=== PATIENT | male | born 1965 | race Caucasian/White ===

== ENCOUNTER → 2016-04-04 | Outpatient (CLI) | payer BC ==
[2016-04-04 10:57] LABS: ALT 41 U/L (21-72); AST 30 U/L (17-59); Alkaline Phosphatase 54 U/L (38-126); Anion Gap 9 mmol/L; Blood Urea Nitrogen 21 mg/dL (9-20); Calcium 9.5 mg/dL (8.4-10.2); Carbon Dioxide 29 mmol/L (22-30); Chloride 104 mmol/L (98-107); Cholesterol 195 mg/dL (<200); Glucose 93 mg/dL (74-99); HDL Cholesterol 62 mg/dL (40-60); Non-African American GFR(MDRD) >60 (>60 ml/min/1.73 sqM); Potassium 4.3 mmol/L (3.5-5.1); Sodium 142 mmol/L (137-145); Total Bilirubin 0.6 mg/dL (0.2-1.3); Total Protein 6.8 g/dL (6.3-8.2); Triglycerides 71 mg/dL (<150)
[2016-04-04 11:24] LABS: Prostate Specific Antigen 0.78 ng/mL (0.00-4.00)
== END | disposition home or self-care (01) ==
LOC: LABWHC1 08:19
PROVIDERS: ATTEND Family Medicine
DX: Z00.01 Encounter for general adult medical examination with abnormal findings (principal); Z13.220 Encounter for screening for lipoid disorders; I10 Essential (primary) hypertension; N40.1 Benign prostatic hyperplasia with lower urinary tract symptoms; B00.1 Herpesviral vesicular dermatitis
CPT/HCPCS: 36415; 80053; 80061; 84153

== ENCOUNTER 2017-03-23 07:17 | Emergency (ER) | payer BC ==
[2017-03-23 07:21] VITALS: TEMP 97
[2017-03-23] MEDS ORDERED: MORPHINE SULFATE 4 MG/ML SYRINGE IVP STA (07:44)
[2017-03-23] MEDS ORDERED: SODIUM CHLORIDE 0.9% 1,000 ML IV STA ×2 (07:44)
[2017-03-23] MEDS ORDERED: KETOROLAC 30 MG/ML 1 ML VIAL IVP STA (07:44)
[2017-03-23 07:55] LABS: HGB 14.6 gm/dL (13.0-17.5); MCH 30.2 pg (25.0-35.0); MCHC 31.9 g/dL (31.0-37.0); MCV 94.8 fL (80.0-100.0); Mean Platelet Volume 6.8; Platelet Count 201 k/uL (150-450); RBC 4.85 m/uL (4.30-5.90); RDW 12.5 % (11.5-15.5); WBC 5.4 k/uL (3.8-10.6)
[2017-03-23 08:04] LABS: ALT 35 U/L (21-72); AST 29 U/L (17-59); Albumin 4.5 g/dL (3.5-5.0); Alkaline Phosphatase 50 U/L (38-126); Anion Gap 10 mmol/L; Blood Urea Nitrogen 18 mg/dL (9-20); Calcium 10.1 mg/dL (8.4-10.2); Carbon Dioxide 27 mmol/L (22-30); Chloride 106 mmol/L (98-107); Glucose 108 mg/dL (74-99); Potassium 4.6 mmol/L (3.5-5.1); Sodium 143 mmol/L (137-145); Total Bilirubin 0.6 mg/dL (0.2-1.3); Total Protein 6.9 g/dL (6.3-8.2)
[2017-03-23 08:06] LABS: Appearance,Urine Clear (Clear); Bilirubin,Urine Negative (Negative); Blood,Urine Large (Negative); Color,Urine Light Red; Glucose,Urine (UA) Negative (Negative); Ketones,Urine Negative (Negative); Leukocyte Esterase,Urine Negative (Negative); Mucus,Urine Occasional /hpf; Nitrite,Urine Negative (Negative); Protein,Urine Trace (Negative); RBC,Urine >182 /hpf (0-5); Specific Gravity,Urine 1.019 (1.001-1.035); Squamous Epithelial Cell,Urine 1 /hpf (0-4); Urobilinogen,Urine <2.0 mg/dL (<2.0)
--- NOTE | 2017-03-23 08:17 | CT ---
EXAMINATION TYPE: CT abdomen pelvis wo con DATE OF EXAM: 03/23/2017 COMPARISON: 10/22/2015 HISTORY: Pt c/o Lt flank pain CT DLP: 966 mGycm Examination of the solid and hollow viscera is limited given the lack of contrast. FINDINGS: LUNG BASES: No evidence for nodule. No evidence for infiltrate. LIVER/GB: The gallbladder is unremarkable. Hypoattenuating hepatic lesions measuring up to 1.2 cm may reflect underlying cysts. PANCREAS: No pancreatic mass identified. No inflammatory process seen. SPLEEN: No evidence for splenomegaly. No intrasplenic lesions seen. ADRENALS: No adrenal nodules identified. No evidence for thickening. KIDNEYS: 3.6 mm calculus distal left ureter approximately 4 cm from the left UVJ resulting in mild le ft-sided hydroureteronephrosis. Mild left renal edema may reflect underlying infection. No additional calculi seen. No renal lesions evident. BOWEL: Appendix has a normal appearance. No evidence of bowel obstruction. No inflammatory process. D iverticulosis without diverticulitis. Lymph nodes: No evidence for adenopathy greater than 1 cm. Abdominal aorta: Atheromatous changes seen. No evidence for aneurysm. Genital organs: Prostate calcifications. Other: No significant abnormality. IMPRESSION: 1.3.6 mm calculus distal left ureter approximately 4 cm from the left UVJ resulting in mild left-side d hydroureteronephrosis.
--- NOTE | 2017-03-23 08:34 | ED ---
General Adult HPI - General Chief complaint: Urogenital Stated complaint: Kidney stone Time Seen by Provider: 03/23/17 08:14 Source: patient, RN notes reviewed Mode of arrival: ambulatory Limitations: no limitations - History of Present Illness Initial comments: 51-year-old male presents for left flank pain and dysuria. He states that for the past day or so. No nausea vomiting. He has noticed darker urine. He states is a family history kidney stone but he himself has not had one. He denies any fever chills. He was concerned due to the continued pains without that he should be seen. Patient denies any recent fever, chills, shortness of breath, chest pain, nausea vomiting, numbness or tingling, constipation or diarrhea, headaches or visual changes, or any other current symptoms. - Related Data Home Medications Medication Instructions Recorded Confirmed Multivitamin [Men's Multi-Vitamin] 1 tab PO DAILY 10/21/15 03/23/17 Lisinopril [Zestril] 10 mg PO DAILY 03/23/17 03/23/17 Previous Rx's Medication Instructions Recorded Hydrocodone/Acetaminophen [[place] 1 each PO Q6HR PRN #10 tab 03/23/17 5-325] Ibuprofen [Motrin] 600 mg PO Q6HR PRN #20 tab 03/23/17 Ondansetron Odt [Zofran ODT] 4 mg PO Q8HR PRN #20 tab 03/23/17 Tamsulosin [Flomax] 0.4 mg PO DAILY #5 cap 03/23/17 Allergies Allergy/AdvReac Type Severity Reaction Status Date / Time No Known Allergies Allergy Verified 03/23/17 07:55 Review of Systems ROS Statement: Those systems with pertinent positive or pertinent negative responses have been documented in the HPI. ROS Other: All systems not noted in ROS Statement are negative. Past Medical History Past Medical History: Hypertension Additional Past Medical History / Comment(s): diverticulitis History of Any Multi-Drug Resistant Organisms: None Reported Past Surgical History: Hernia Repair Past Psychological History: No Psychological Hx Reported Smoking Status: Never smoker Past Alcohol Use History: Occasional Past Drug Use History: None Reported General Exam Limitations: no limitations General appearance: alert, in no apparent distress ENT exam: Present: normal exam, mucous membranes moist Neck exam: Present: normal inspection. Absent: tenderness, meningismus, lymphadenopathy Respiratory exam: Present: normal lung sounds bilaterally. Absent: respiratory distress, wheezes, rales, rhonchi, stridor Cardiovascular Exam: Present: regular rate, normal rhythm, normal heart sounds. Absent: systolic murmur, diastolic murmur, rubs, gallop, clicks GI/Abdominal exam: Present: soft, normal bowel sounds. Absent: distended, tenderness, guarding, rebound, rigid Neurological exam: Present: alert, oriented X3, CN II-XII intact Psychiatric exam: Present: normal affect, normal mood Skin exam: Present: warm, dry, intact, normal color. Absent: rash Course Vital Signs 03/23/17 07:18 Temperature 97.0 F L Pulse Rate 107 H Respiratory 18 Rate Blood Pressure 137/83 O2 Sat by Pulse 99 Oximetry Medical Decision Making - Medical Decision Making 51-year-old male presents for left flank pain who does appear to have a left ureteral calculus. At this time we will state patient medications for home. We discussed follow-up with urology we discussed return parameters all questions. Patient stated that he understood he is agreement this plan. All questions have been answered. He'll be discharged - Lab Data Result diagrams: 03/23/17 07:37 03/23/17 07:37 Lab Results 03/23/17 03/23/17 03/23/17 Range/Units 07:37 07:37 07:37 WBC 5.4 (3.8-10.6) k/uL RBC 4.85 (4.30-5.90) m/uL Hgb 14.6 (13.0-17.5) gm/dL Hct 46.0 (39.0-53.0) % MCV 94.8 (80.0-100.0) fL MCH 30.2 (25.0-35.0) pg MCHC 31.9 (31.0-37.0) g/dL RDW 12.5 (11.5-15.5) % Plt Count 201 (150-450) k/uL Sodium 143 (137-145) mmol/L Potassium 4.6 (3.5-5.1) mmol/L Chloride 106 (98-107) mmol/L Carbon Dioxide 27 (22-30) mmol/L Anion Gap 10 mmol/L BUN 18 (9-20) mg/dL Creatinine 0.94 (0.66-1.25) mg/dL Est GFR (MDRD) Af Amer >60 (>60 ml/min/1.73 sqM) Est GFR (MDRD) Non-Af >60 (>60 ml/min/1.73 sqM) Glucose 108 H (74-99) mg/dL Calcium 10.1 (8.4-10.2) mg/dL Total Bilirubin 0.6 (0.2-1.3) mg/dL AST 29 (17-59) U/L ALT 35 (21-72) U/L Alkaline Phosphatase 50 (38-126) U/L Total Protein 6.9 (6.3-8.2) g/dL Albumin 4.5 (3.5-5.0) g/dL Urine Color Light Red Urine Appearance Clear (Clear) Urine pH 6.0 (5.0-8.0) Ur Specific [place] 1.019 (1.001-1.035) Urine Protein Trace H (Negative) Urine Glucose (UA) Negative (Negative) Urine Ketones Negative (Negative) Urine Blood Large H (Negative) Urine Nitrite Negative (Negative) Urine Bilirubin Negative (Negative) Urine Urobilinogen <2.0 (<2.0) mg/dL Ur Leukocyte Esterase Negative (Negative) Urine RBC >182 H (0-5) /hpf Ur Squamous Epith Cells 1 (0-4) /hpf Urine Mucus Occasional H (None) /hpf - Radiology Data Radiology results: report reviewed, image reviewed Disposition Clinical Impression: Left ureteral calculus Disposition: HOME SELF-CARE Condition: Stable Instructions: Ureteral Stones (ED) Additional Instructions: Please use medication as discussed. Please follow up with family doctor if symptoms have not improved over the next two days. Please return to the emergency room if your symptoms increase or worsen or for any other concerns. Prescriptions: Hydrocodone/Acetaminophen [[place] 5-325] 1 each PO Q6HR PRN #10 tab PRN Reason: Pain Ibuprofen [Motrin] 600 mg PO Q6HR PRN #20 tab PRN Reason: Pain Ondansetron Odt [Zofran ODT] 4 mg PO Q8HR PRN #20 tab PRN Reason: Nausea Tamsulosin [Flomax] 0.4 mg PO DAILY #5 cap Referrals: Damaris Cardona III, MD [Primary Care Provider] - 1-2 days Murphy Hayden MD [STAFF PHYSICIAN] - 1-2 days Time of Disposition: 08:33
[2017-03-23 08:43] VITALS: BP 125/84; PULSE 82; RESP 17
[2017-03-23 08:47] LABS: Eosinophils # (M) 0.11 k/uL (0-0.7); Lymphocytes # (M) 1.78 k/uL (1.0-4.8); Monocytes # (M) 0.27 k/uL (0-1.0); Neutrophils # (M) 3.24 k/uL (1.3-7.7); Neutrophils % (M) 60 %; Nucleated Red Blood Cells 0 /100 WBC (0-0); Total Cells Counted 100
== END 2017-03-23 08:43 | disposition home or self-care (01) ==
LOC: EC 07:17
DX: N20.1 Calculus of ureter (principal); I10 Essential (primary) hypertension; Z79.899 Other long term (current) drug therapy; Z84.1 Family history of disorders of kidney and ureter; Z53.20 Procedure and treatment not carried out because of patient's decision for unspecified reasons; Z53.8 Procedure and treatment not carried out for other reasons
CPT/HCPCS: 36415; 74176; 80053; 81001; 85025; 87086; 96360; 99284

== ENCOUNTER → 2017-04-02 | Outpatient (CLI) | payer BC ==
[2017-04-02 10:51] LABS: PSA Annual Screen 0.96 ng/mL (0.00-4.00)
== END ==
LOC: LABWHC1 09:05
PROVIDERS: ATTEND Family Medicine
DX: Z00.01 Encounter for general adult medical examination with abnormal findings (principal); N40.1 Benign prostatic hyperplasia with lower urinary tract symptoms
CPT/HCPCS: 80061; 36415; G0103

== ENCOUNTER → 2017-10-28 | Outpatient (CLI) | payer BC ==
--- NOTE | 2017-10-28 15:34 | XR ---
EXAMINATION TYPE: XR chest 2V DATE OF EXAM: 10/28/2017 COMPARISON: Chest x-ray March 23, 2015. HISTORY: Annual physical exam. TECHNIQUE: Frontal and lateral views of the chest are obtained. FINDINGS: There is no focal air space opacity, pleural effusion, or pneumothorax seen. The cardiac silhouette size is within normal limits. The osseous structures are intact. IMPRESSION: No acute cardiopulmonary process. No significant change from prior.
== END | disposition home or self-care (01) ==
LOC: RADXRMAIN 14:48
PROVIDERS: ATTEND Internal Medicine Geriatric Medicine
DX: R05 Cough (principal)
CPT/HCPCS: 71046

== ENCOUNTER → 2017-11-08 | Outpatient (CLI) | payer BC ==
--- NOTE | 2017-11-08 12:18 | CT ---
EXAMINATION TYPE: CT soft tissue neck w con DATE OF EXAM: 11/08/2017 11:44 AM COMPARISON: None HISTORY: Palpable mass. Right of midline nodule marked by nodule. CT DLP: 377 mGycm Automated exposure control for dose reduction was used. CONTRAST: CT scan of the neck is performed following with IV Contrast, patient injected with 100 mL of Isovue 3 00. Axial images are obtained, coronal and sagittal reformatted images are reviewed. FINDINGS: There is a BB overlying the area of patient's palpable abnormality, no underlying abnormali ties evident. Airway: There are calcifications noted in the parapharyngeal soft tissues compatible with chronic inf ection.. Parotid/submandibular glands: No gross abnormality seen. Carotid/Vascular Structures: Patent, no evidence stenosis of the proximal internal carotid arteries. Vertebral arteries are patent. Osseous Structures: Probable mucoperiosteal thickening, possible mucus retention cyst noted within th e bilateral maxillary sinuses. Other: Thyroid gland is unremarkable. Small benign-appearing lymph nodes are present bilaterally. IMPRESSION: No abnormality evident to the site of patient's overlying BB. Sinus disease.
== END ==
LOC: RADCTMAIN 11:09
PROVIDERS: ATTEND Otolaryngology
DX: R07.0 Pain in throat (principal)
CPT/HCPCS: 70491; Q9967

== ENCOUNTER → 2018-04-05 | Outpatient (CLI) | payer BC ==
[2018-04-05 10:36] LABS: HCT 44.8 % (39.0-53.0); HGB 14.7 gm/dL (13.0-17.5); MCH 30.5 pg (25.0-35.0); MCHC 32.8 g/dL (31.0-37.0); MCV 92.9 fL (80.0-100.0); Mean Platelet Volume 6.4; Platelet Count 199 k/uL (150-450); RBC 4.82 m/uL (4.30-5.90); RDW 12.8 % (11.5-15.5); WBC 4.6 k/uL (3.8-10.6)
[2018-04-05 11:24] LABS: Eosinophils # (M) 0.14 k/uL (0-0.7); Lymphocytes # (M) 1.66 k/uL (1.0-4.8); Monocytes # (M) 0.37 k/uL (0-1.0); Neutrophils # (M) 2.44 k/uL (1.3-7.7); Neutrophils % (M) 53 %; Nucleated Red Blood Cells 0 /100 WBC (0-0); Total Cells Counted 100
[2018-04-05 17:03] LABS: Albumin 4.4 g/dL (3.80-4.90); Albumin/Globulin Ratio 2.75 (1.60-3.17); Anion Gap 9.1 mmol/L (4.00-12.00); Calcium 9.5 mg/dL (8.7-10.3); Carbon Dioxide 27.9 mmol/L (21.6-31.8); Globulin 1.6 g/dL (1.6-3.3); Potassium 4.3 mmol/L (3.5-5.5); Total Bilirubin 0.7 mg/dL (0.2-1.2)
[2018-04-05 20:02] LABS: Hemoglobin A1C 5.2 % (4.0-6.0)
== END ==
LOC: LABWHC1 09:15
PROVIDERS: ATTEND Internal Medicine Geriatric Medicine
DX: Z00.00 Encounter for general adult medical examination without abnormal findings (principal); N40.0 Benign prostatic hyperplasia without lower urinary tract symptoms; I10 Essential (primary) hypertension
CPT/HCPCS: 36415; 80053; 80061; 83036; 84153; 84439; 84443; 85025

== ENCOUNTER → 2019-04-21 | Outpatient (CLI) | payer BC ==
[2019-04-21 09:31] LABS: HCT 44.3 % (39.0-53.0); HGB 14.6 gm/dL (13.0-17.5); MCH 30.7 pg (25.0-35.0); Mean Platelet Volume 7.4; Platelet Count 194 k/uL (150-450); RBC 4.76 m/uL (4.30-5.90); RDW 13.1 % (11.5-15.5); WBC 5.4 k/uL (3.8-10.6)
[2019-04-21 09:48] LABS: Eosinophils # (M) 0.05 k/uL (0-0.7); Lymphocytes # (M) 1.08 k/uL (1.0-4.8); Monocytes # (M) 0.65 k/uL (0-1.0); Neutrophils # (M) 3.62 k/uL (1.3-7.7); Neutrophils % (M) 67 %; Nucleated Red Blood Cells 0 /100 WBC (0-0); Total Cells Counted 100
[2019-04-21 16:19] LABS: African American GFR (CKD) 114.2 (60.0-200.0); Albumin 4.6 g/dL (3.80-4.90); Albumin/Globulin Ratio 2.71 (1.60-3.17); Anion Gap 7.5 mmol/L (4.00-12.00); BUN/Creat Ratio 23.33 Ratio (12.00-20.00); Calcium 9.2 mg/dL (8.7-10.3); Carbon Dioxide 28.5 mmol/L (21.6-31.8); Chol/HDL Ratio 3.07; Globulin 1.7 g/dL (1.6-3.3); LDL Cholesterol,Calculated 136.6 mg/dL (0.0-131.0); Non-African American GFR(CKD) 98.5 (60.0-200.0); Potassium 4.2 mmol/L (3.5-5.5); Total Bilirubin 0.6 mg/dL (0.3-1.2); Total Protein 6.3 g/dL (6.2-8.2); VLDL Calculation 14.4 mg/dL (5.00-40.00)
[2019-04-21 18:45] LABS: Hemoglobin A1C 5.3 % (4.0-6.0)
== END | disposition home or self-care (01) ==
LOC: LABWHC1 08:27
PROVIDERS: ATTEND Internal Medicine Geriatric Medicine
DX: Z00.00 Encounter for general adult medical examination without abnormal findings (principal); N40.0 Benign prostatic hyperplasia without lower urinary tract symptoms; R79.9 Abnormal finding of blood chemistry, unspecified
CPT/HCPCS: 36415; 80053; 80061; 83036; 84153; 84443; 85025

== ENCOUNTER → 2020-04-22 | Outpatient (CLI) | payer BC ==
[2020-04-22 14:59] LABS: Basophils # (A) 0.02 X 10*3/uL (0.00-0.10); Basophils % (A) 0.3 %; Eosinophils # (A) 0.13 X 10*3/uL (0.04-0.35); HCT 43.6 % (39.6-50.0); HGB 14.1 g/dL (13.0-17.0); Lymphocytes # (A) 1.69 X 10*3/uL (0.90-5.00); Lymphocytes % (A) 26.5 %; MCH 30.4 pg (27.0-32.0); MCHC 32.3 g/dL (32.0-37.0); Mean Platelet Volume 10.6 fL (9.5-12.2); Monocytes # (A) 0.77 X 10*3/uL (0.20-1.00); Monocytes % (A) 12.1 %; Neutrophils # (A) 3.76 X 10*3/uL (1.80-7.70); Neutrophils % (A) 58.9 %; Platelet Count 210 X 10*3/uL (140-440); RBC 4.64 X 10*6/uL (4.40-5.60); RDW 13.2 % (11.5-14.5); WBC 6.38 X 10*3/uL (4.50-10.00)
[2020-04-22 15:42] LABS: African American GFR (CKD) 118.2 (60.0-200.0); Albumin 4.5 g/dL (3.80-4.90); Albumin/Globulin Ratio 2.65 (1.60-3.17); Anion Gap 6.2 mmol/L (4.00-12.00); Calcium 9.7 mg/dL (8.7-10.3); Carbon Dioxide 30.8 mmol/L (21.6-31.8); Chol/HDL Ratio 2.66; Globulin 1.7 g/dL (1.6-3.3); LDL Cholesterol,Calculated 108.8 mg/dL (0.0-131.0); Potassium 4.2 mmol/L (3.5-5.5); Total Bilirubin 0.5 mg/dL (0.3-1.2); Total Protein 6.2 g/dL (6.2-8.2); VLDL Calculation 17.2 mg/dL (5.00-40.00)
[2020-04-22 15:51] LABS: Prostate Specific Antigen 3.3 ng/mL (0.0-3.5)
== END | disposition home or self-care (01) ==
LOC: LABWHC1 09:20
PROVIDERS: ATTEND Internal Medicine Geriatric Medicine
DX: E78.5 Hyperlipidemia, unspecified (principal); R79.9 Abnormal finding of blood chemistry, unspecified; N40.0 Benign prostatic hyperplasia without lower urinary tract symptoms
CPT/HCPCS: 36415; 80053; 80061; 83036; 84153; 84443; 85025

== ENCOUNTER → 2021-04-30 | Outpatient (CLI) | payer BC ==
[2021-04-30 19:08] LABS: Chol/HDL Ratio 3.25 Ratio; LDL Cholesterol,Calculated 160.6 mg/dL (0.0-131.0); VLDL Calculation 13.94 mg/dL (5.00-40.00)
== END | disposition home or self-care (01) ==
LOC: LABWHC1 11:40
PROVIDERS: ATTEND Internal Medicine Geriatric Medicine
DX: E78.5 Hyperlipidemia, unspecified (principal); N40.0 Benign prostatic hyperplasia without lower urinary tract symptoms
CPT/HCPCS: 36415; 80061; 84153

== ENCOUNTER → 2022-05-15 | Outpatient (CLI) | payer BC ==
[2022-05-15 11:24] LABS: Basophils # (A) 0.02 X 10*3/uL (0.00-0.10); Basophils % (A) 0.4 %; Eosinophils # (A) 0.11 X 10*3/uL (0.04-0.35); Eosinophils % (A) 2.1 %; HCT 45.2 % (39.6-50.0); HGB 14.6 g/dL (13.0-17.0); Immature Grans, Automated 0.2 %; Lymphocytes # (A) 1.69 X 10*3/uL (0.90-5.00); Lymphocytes % (A) 31.7 %; MCHC 32.3 g/dL (32.0-37.0); MCV 92.8 fL (80.0-97.0); Mean Platelet Volume 10.5 fL (9.5-12.2); Monocytes # (A) 0.62 X 10*3/uL (0.20-1.00); Monocytes % (A) 11.6 %; NRBC Per 100 WBC 0 /100 WBCS (0.0-0.0); Neutrophils # (A) 2.88 X 10*3/uL (1.80-7.70); Platelet Count 205 X 10*3/uL (140-440); RBC 4.87 X 10*6/uL (4.40-5.60); RDW 12.7 % (11.5-14.5); WBC 5.33 X 10*3/uL (4.50-10.00)
[2022-05-15 11:34] LABS: ALT 50 U/L (10-49); AST 31 U/L (14-35); African American GFR (CKD) 97.8 (60.0-200.0); Albumin 4.9 g/dL (3.8-4.9); Albumin/Globulin Ratio 2.45 (1.60-3.17); Alkaline Phosphatase 51 U/L (41-126); Blood Urea Nitrogen 19.9 mg/dL (9.0-27.0); Calcium 9.8 mg/dL (8.7-10.3); Carbon Dioxide 29.2 mmol/L (20.0-27.5); Chloride 103 mmol/L (96-109); Chol/HDL Ratio 2.17 Ratio; Glucose 87 mg/dL (70-110); LDL Cholesterol,Calculated 70.8 mg/dL (0.0-131.0); Non-African American GFR(CKD) 84.4 (60.0-200.0); Potassium 4.2 mmol/L (3.5-5.5); Sodium 142 mmol/L (135-145); Total Protein 6.9 g/dL (6.2-8.2); VLDL Calculation 12.68 mg/dL (5.00-40.00)
== END | disposition home or self-care (01) ==
LOC: LABWHC1 07:58
PROVIDERS: ATTEND Internal Medicine Geriatric Medicine
DX: Z00.00 Encounter for general adult medical examination without abnormal findings (principal); K22.70 Barrett's esophagus without dysplasia; E78.5 Hyperlipidemia, unspecified; N40.0 Benign prostatic hyperplasia without lower urinary tract symptoms; R79.9 Abnormal finding of blood chemistry, unspecified
CPT/HCPCS: 36415; 80053; 80061; 83036; 84153; 84443; 85025

== ENCOUNTER → 2022-06-04 | Outpatient (CLI) | payer BC ==
--- NOTE | 2022-06-04 19:17 | XR ---
EXAMINATION TYPE: XR chest 2V DATE OF EXAM: 06/04/2022 COMPARISON: 10/28/2017 HISTORY: 57-year-old male R05.9 TECHNIQUE: Frontal and lateral views FINDINGS: The cardiomediastinal silhouette, aorta, and pulmonary vasculature are within normal limits. Lungs an d pleural spaces are clear. IMPRESSION: No acute cardiopulmonary process.
== END | disposition home or self-care (01) ==
LOC: RADXRMAIN 15:05
PROVIDERS: ATTEND Internal Medicine Geriatric Medicine
DX: R05.9 Cough, unspecified (principal)
CPT/HCPCS: 71046

== ENCOUNTER → 2023-05-17 | Outpatient (CLI) | payer BC ==
[2023-05-17 11:01] LABS: Basophils # (A) 0.03 X 10*3/uL (0.00-0.10); Basophils % (A) 0.6 %; Eosinophils # (A) 0.12 X 10*3/uL (0.04-0.35); Eosinophils % (A) 2.4 %; HGB 14.8 g/dL (13.0-17.0); Lymphocytes % (A) 35.6 %; MCH 30.8 pg (27.0-32.0); MCHC 33.6 g/dL (32.0-37.0); MCV 91.5 FL (80.0-97.0); Mean Platelet Volume 10.1 FL (9.5-12.2); Monocytes # (A) 0.53 X 10*3/uL (0.20-1.00); Monocytes % (A) 10.5 %; NRBC Per 100 WBC 0 X 10*3/uL (0.00-0.01); Neutrophils # (A) 2.56 X 10*3/uL (1.80-7.70); Neutrophils % (A) 50.7 %; Platelet Count 202 X 10*3/uL (140-440); RBC 4.81 X 10*6/uL (4.40-5.60); RDW 12.8 % (11.5-14.5); WBC 5.05 X 10*3/uL (4.50-10.00)
[2023-05-17 11:15] LABS: Chol/HDL Ratio 2.24 Ratio; VLDL Calculation 13.42 mg/dL (5.00-40.00)
[2023-05-17 11:16] LABS: ALT 33 U/L (10-49); AST 25 U/L (14-35); Albumin 4.8 g/dL (3.8-4.9); Albumin/Globulin Ratio 2.53 Ratio (1.60-3.17); Alkaline Phosphatase 50 U/L (41-126); BUN/Creat Ratio 21.11 Ratio (12.00-20.00); Calcium 9.7 mg/dL (8.7-10.3); Carbon Dioxide 27.7 mmol/L (21.6-31.8); Chloride 104 mmol/L (96-109); Globulin 1.9 g/dL (1.6-3.3); Glucose 105 mg/dL (70-110); LDL Cholesterol,Calculated 76.8 mg/dL (0.0-131.0); Potassium 4.2 mmol/L (3.5-5.5); Prostate Specific Antigen 1.44 ng/mL (0.000-3.500); Sodium 142 mmol/L (135-145); Total Bilirubin 0.4 mg/dL (0.3-1.2); Total Protein 6.7 g/dL (6.2-8.2)
== END | disposition home or self-care (01) ==
LOC: LABWHC1 08:08
PROVIDERS: ATTEND Internal Medicine Geriatric Medicine
DX: Z00.00 Encounter for general adult medical examination without abnormal findings (principal); E78.5 Hyperlipidemia, unspecified; K22.70 Barrett's esophagus without dysplasia; N40.0 Benign prostatic hyperplasia without lower urinary tract symptoms
CPT/HCPCS: 36415; 80053; 80061; 84153; 84443; 85025

== ENCOUNTER 2024-02-01 09:34 | Emergency (ER) | payer BC ==
--- NOTE | 2024-02-01 10:01 | ED ---
Weakness HPI - General Chief complaint: Weakness Stated complaint: weakness Time Seen by Provider: 02/01/24 09:40 Source: patient, RN notes reviewed Mode of arrival: ambulatory Limitations: no limitations - History of Present Illness Initial comments: This is a 58-year-old male who presents to the emergency department for weakness. 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 He started to feel weak, diaphoretic, and like he was going to pass out. He went to sit down in the back and received a liter of IV fluids. States that he started to feel better, but is still weak. Denies any chest pain or shortness of breath. Denies any history similar symptoms in the past. Denies any nausea/vomiting or history of cardiac problems. MD Complaint: generalized weakness - Related Data Home Medications Medication Instructions Recorded Confirmed Multivitamin [Men's Multi-Vitamin] 1 tab PO DAILY 10/21/15 03/23/17 lisinopriL [Zestril] 10 mg PO DAILY 03/23/17 03/23/17 Previous Rx's Medication Instructions Recorded Hydrocodone/Acetaminophen [[place] 1 each PO Q6HR PRN #10 tab 03/23/17 5-325] Ibuprofen [Motrin] 600 mg PO Q6HR PRN #20 tab 03/23/17 Ondansetron Odt [Zofran ODT] 4 mg PO Q8HR PRN #20 tab 03/23/17 Tamsulosin [Flomax] 0.4 mg PO DAILY #5 cap 03/23/17 Allergies Allergy/AdvReac Type Severity Reaction Status Date / Time No Known Allergies Allergy Verified 03/23/17 07:55 Review of Systems ROS Statement: Those systems with pertinent positive or pertinent negative responses have been documented in the HPI. ROS Other: All systems not noted in ROS Statement are negative. Past Medical History Past Medical History: Hypertension Additional Past Medical History / Comment(s): diverticulitis History of Any Multi-Drug Resistant Organisms: None Reported Past Surgical History: Hernia Repair Past Psychological History: No Psychological Hx Reported Past Alcohol Use History: Occasional Past Drug Use History: None Reported General Exam Limitations: no limitations General appearance: alert, in no apparent distress Head exam: Present: atraumatic, normocephalic, normal inspection Eye exam: Present: normal appearance, PERRL, EOMI. Absent: scleral icterus, conjunctival injection, periorbital swelling Respiratory exam: Present: normal lung sounds bilaterally. Absent: respiratory distress, wheezes, rales, rhonchi, stridor Cardiovascular Exam: Present: regular rate, normal rhythm, normal heart sounds. Absent: systolic murmur, diastolic murmur, rubs, gallop, clicks Neurological exam: Present: alert, oriented X3, CN II-XII intact Psychiatric exam: Present: normal affect, normal mood Skin exam: Present: warm, dry, intact, normal color. Absent: rash Course Vital Signs 02/01/24 02/01/24 10:48 11:21 Temperature 97.6 F 97.6 F Pulse Rate 92 78 Respiratory 17 17 Rate Blood Pressure 127/82 123/78 O2 Sat by Pulse 98 98 Oximetry Medical Decision Making - Medical Decision Making This is a 58-year-old male who presents to the emergency department for weak ness. Was pt. sent in by a medical professional or institution? @ -No Did you speak to anyone other than the patient for history? @ -No Did you review nursing and triage notes? @ -Yes, and I agree, it is accurate with regards to the patient's symptoms. Were old charts reviewed? @ -No Differential Diagnosis? @ -Differential Weakness: Hypoglycemia, shock, sepsis, hyponatremia, anemia, infection, UT, ETOH, adverse medicine reaction, overdose, stroke, this is not meant to be an all-inclusive list. EKG interpreted by me (3pts min.)? @ -EKG interpreted by me demonstrating the following: Electronic atrial pacemaker. Ventricular rate 93 bpm, OK interval 357 ms, QRS duration 95 ms, QTc 409 ms. X-rays interpreted by me (1pt min.)? @ -Not obtained CT interpreted by me (1pt min.)? @ -Not obtained U/S interpreted by me (1pt. min.)? @ -Not obtained What testing was considered but not performed? (CT, X-rays, U/S, labs)? Why? @ -None What meds were considered but not given? Why? @ -None Did you discuss the management of the patient with other professionals? @ -No Did you reconcile home meds? @ -No Was smoking cessation discussed for >3mins.? @ -No Was critical care preformed (if so, how long)? @ -No Were there social determinants of health that impacted care today? How? (Homelessness, low income, unemployed, alcoholism, drug addiction, transportation, low edu. Level, literacy, decrease access to med. care, retirement, rehab)? @ -No Was there de-escalation of care discussed even if they declined? (Discuss DNR or withdrawal of care, Hospice)? @ -No What co-morbidities impacted this encounter? (DM, HTN, Smoking, COPD, CAD, Cancer, CVA, Hep., AIDS, mental health diagnosis, sleep apnea, morbid obesity)? @ -None Was patient admitted / discharged? @ -Discharged. Lab work unremarkable. COVID, influenza, and RSV testing negative. He had already received a liter bolus of IV fluids prior to checking in. He was given another 500 mL in the emergency department. The cause of his symptoms is not currently clear. It could be something along the lines of an early viral infection. He did not have any chest pain or shortness of breath. Advised follow-up with his PCP in the next couple of days and he was given strict return precautions. Patient discharged home in stable condition. Case discussed with ED attending Dr. Beckman. Return precautions reviewed in depth, the patient is instructed to return to the emergency department with any new, worsening, or concerning symptoms. Patient verbalized understanding. Undiagnosed new problem with uncertain prognosis? @ -None Drug Therapy requiring intensive monitoring for toxicity (Heparin, Nitro, Insulin, Cardizem)? @ -None Were any procedures done? @ -None Diagnosis/symptom? @ -Dizziness, near syncope Acute, or Chronic, or Acute on Chronic? @ -Acute Uncomplicated (without systemic symptoms) or Complicated (systemic symptoms)? @ -Uncomplicated Side effects of treatment? @ -None Exacerbation, Progression, or Severe Exacerbation] @ -Not applicable Poses a threat to life or bodily function? @ -Unlikely - Lab Data Result diagrams: 02/01/24 09:59 02/01/24 09:59 Lab Results 02/01/24 02/01/24 02/01/24 Range/Units 09:59 09:59 09:59 WBC 7.2 (3.8-10.6) k/uL RBC 4.22 L (4.30-5.90) m/uL Hgb 13.3 (13.0-17.5) gm/dL Hct 40.1 (39.0-53.0) % MCV 94.8 (80.0-100.0) fL MCH 31.4 (25.0-35.0) pg MCHC 33.1 (31.0-37.0) g/dL RDW 12.6 (11.5-15.5) % Plt Count 179 (150-450) k/uL MPV 7.4 Neutrophils % 73 % Lymphocytes % 12 % Monocytes % 11 % Eosinophils % 1 % Basophils % 0 % Neutrophils # 5.3 (1.3-7.7) k/uL Lymphocytes # 0.8 L (1.0-4.8) k/uL Monocytes # 0.8 (0-1.0) k/uL Eosinophils # 0.0 (0-0.7) k/uL Basophils # 0.0 (0-0.2) k/uL Sodium 138 (137-145) mmol/L Potassium 4.1 (3.5-5.1) mmol/L Chloride 106 (98-107) mmol/L Carbon Dioxide 26 (22-30) mmol/L Anion Gap 6 mmol/L BUN 16 (9-20) mg/dL Creatinine 0.72 (0.66-1.25) mg/dL Est GFR (CKD-EPI)AfAm >90 (>60 ml/min/1.73 sqM) Est GFR (CKD-EPI)NonAf >90 (>60 ml/min/1.73 sqM) Glucose 96 (74-99) mg/dL Plasma Lactic Acid Sae 0.7 (0.7-2.0) mmol/L Calcium 8.7 (8.4-10.2) mg/dL Magnesium 1.9 (1.6-2.3) mg/dL Total Bilirubin 0.3 (0.2-1.3) mg/dL AST 29 (17-59) U/L ALT 23 (4-49) U/L Alkaline Phosphatase 60 (38-126) U/L Troponin I (0.000-0.034) ng/mL Total Protein 6.2 L (6.3-8.2) g/dL Albumin 4.2 (3.5-5.0) g/dL Influenza Type A (PCR) (Not Detectd) Influenza Type B (PCR) (Not Detectd) RSV (PCR) (Not Detectd) SARS-CoV-2 (PCR) (Not Detectd) 02/01/24 02/01/24 Range/Units 09:59 09:59 WBC (3.8-10.6) k/uL RBC (4.30-5.90) m/uL Hgb (13.0-17.5) gm/dL Hct (39.0-53.0) % MCV (80.0-100.0) fL MCH (25.0-35.0) pg MCHC (31.0-37.0) g/dL RDW (11.5-15.5) % Plt Count (150-450) k/uL MPV Neutrophils % % Lymphocytes % % Monocytes % % Eosinophils % % Basophils % % Neutrophils # (1.3-7.7) k/uL Lymphocytes # (1.0-4.8) k/uL Monocytes # (0-1.0) k/uL Eosinophils # (0-0.7) k/uL Basophils # (0-0.2) k/uL Sodium (137-145) mmol/L Potassium (3.5-5.1) mmol/L Chloride (98-107) mmol/L Carbon Dioxide (22-30) mmol/L Anion Gap mmol/L BUN (9-20) mg/dL Creatinine (0.66-1.25) mg/dL Est GFR (CKD-EPI)AfAm (>60 ml/min/1.73 sqM) Est GFR (CKD-EPI)NonAf (>60 ml/min/1.73 sqM) Glucose (74-99) mg/dL Plasma Lactic Acid Sae (0.7-2.0) mmol/L Calcium (8.4-10.2) mg/dL Magnesium (1.6-2.3) mg/dL Total Bilirubin (0.2-1.3) mg/dL AST (17-59) U/L ALT (4-49) U/L Alkaline Phosphatase (38-126) U/L Troponin I <0.012 (0.000-0.034) ng/mL Total Protein (6.3-8.2) g/dL Albumin (3.5-5.0) g/dL Influenza Type A (PCR) Not Detected (Not Detectd) Influenza Type B (PCR) Not Detected (Not Detectd) RSV (PCR) Not Detected (Not Detectd) SARS-CoV-2 (PCR) Not Detected (Not Detectd) Disposition Clinical Impression: Dizziness, Near syncope Disposition: HOME SELF-CARE Instructions (If sedation given, give patient instructions): Near Syncope (ED), Dizziness (ED) Additional Instructions: Return to the emergency department with any new, worsening, or concerning symptoms. Follow up with your primary care provider in 1-2 days. Is patient prescribed a controlled substance at d/c from ED?: No Referrals: Obdulio Gamboa MD [Primary Care Provider] - 1-2 days Time of Disposition: 11:12
[2024-02-01] MEDS: SODIUM CHLORIDE 0.9% 500 ML 500 ML IV STA (10:03)
[2024-02-01 10:12] LABS: Basophils % (A) 0 %; Eosinophils % (A) 1 %; HCT 40.1 % (39.0-53.0); HGB 13.3 gm/dL (13.0-17.5); Lymphocytes # (A) 0.8 k/uL (1.0-4.8); Lymphocytes % (A) 12 %; MCH 31.4 pg (25.0-35.0); MCHC 33.1 g/dL (31.0-37.0); MCV 94.8 fL (80.0-100.0); Mean Platelet Volume 7.4; Monocytes # (A) 0.8 k/uL (0-1.0); Monocytes % (A) 11 %; Neutrophils # (A) 5.3 k/uL (1.3-7.7); Neutrophils % (A) 73 %; Platelet Count 179 k/uL (150-450); RBC 4.22 m/uL (4.30-5.90); RDW 12.6 % (11.5-15.5); WBC 7.2 k/uL (3.8-10.6)
[2024-02-01 10:48] LABS: ALT 23 U/L (4-49); AST 29 U/L (17-59); African American GFR (CKD) >90 (>60 ml/min/1.73 sqM); Albumin 4.2 g/dL (3.5-5.0); Alkaline Phosphatase 60 U/L (38-126); Anion Gap 6 mmol/L; Blood Urea Nitrogen 16 mg/dL (9-20); Calcium 8.7 mg/dL (8.4-10.2); Carbon Dioxide 26 mmol/L (22-30); Chloride 106 mmol/L (98-107); Glucose 96 mg/dL (74-99); Magnesium 1.9 mg/dL (1.6-2.3); Non-African American GFR(CKD) >90 (>60 ml/min/1.73 sqM); Potassium 4.1 mmol/L (3.5-5.1); Sodium 138 mmol/L (137-145); Total Bilirubin 0.3 mg/dL (0.2-1.3); Total Protein 6.2 g/dL (6.3-8.2)
[2024-02-01 10:49] VITALS: RESP 17; TEMP 97.6
[2024-02-01 11:23] VITALS: BP 123/78; PULSE 78
== END 2024-02-01 11:23 | disposition home or self-care (01) ==
LOC: EC 09:34
DX: R42 Dizziness and giddiness (principal); R55 Syncope and collapse
CPT/HCPCS: 36415; 80053; 83605; 83735; 84484; 85025; 87636; 93005; 99284

== ENCOUNTER → 2024-05-25 | Outpatient (CLI) | payer BC ==
[2024-05-25 15:32] LABS: Basophils # (A) 0.03 X 10*3/uL (0.00-0.10); Basophils % (A) 0.7 %; Eosinophils # (A) 0.16 X 10*3/uL (0.04-0.35); Eosinophils % (A) 3.6 %; HCT 43.3 % (39.6-50.0); HGB 14.3 g/dL (13.0-17.0); Immature Grans, Automated 0 %; Lymphocytes # (A) 1.58 X 10*3/uL (0.90-5.00); Lymphocytes % (A) 35.6 %; MCV 93.9 FL (80.0-97.0); Mean Platelet Volume 10.5 FL (9.5-12.2); Monocytes # (A) 0.65 X 10*3/uL (0.20-1.00); Monocytes % (A) 14.6 %; NRBC Per 100 WBC 0 X 10*3/uL (0.00-0.01); Neutrophils # (A) 2.02 X 10*3/uL (1.80-7.70); Neutrophils % (A) 45.5 %; Platelet Count 199 X 10*3/uL (140-440); RBC 4.61 X 10*6/uL (4.40-5.60); WBC 4.44 X 10*3/uL (4.50-10.00)
[2024-05-25 15:49] LABS: ALT 23 U/L (10-49); AST 27 U/L (14-35); Albumin 4.1 g/dL (3.8-4.9); Albumin/Globulin Ratio 1.95 Ratio (1.60-3.17); Alkaline Phosphatase 46 U/L (41-126); BUN/Creat Ratio 21.12 Ratio (12.00-20.00); Blood Urea Nitrogen 16.9 mg/dL (9.0-27.0); Calcium 9.4 mg/dL (8.7-10.3); Carbon Dioxide 28.2 mmol/L (21.6-31.8); Chloride 103 mmol/L (96-109); Chol/HDL Ratio 1.71 Ratio; Globulin 2.1 g/dL (1.6-3.3); Glucose 95 mg/dL (70-110); Potassium 4.1 mmol/L (3.5-5.5); Prostate Specific Antigen 1.58 ng/mL (0.000-3.500); Sodium 140 mmol/L (135-145); Total Bilirubin 0.4 mg/dL (0.3-1.2); Total Protein 6.2 g/dL (6.2-8.2); VLDL Calculation 10.56 mg/dL (5.00-40.00)
== END | disposition home or self-care (01) ==
LOC: LABWHC1 08:23
PROVIDERS: ATTEND Internal Medicine Geriatric Medicine
DX: Z00.00 Encounter for general adult medical examination without abnormal findings (principal); K22.70 Barrett's esophagus without dysplasia; E78.5 Hyperlipidemia, unspecified; N40.0 Benign prostatic hyperplasia without lower urinary tract symptoms
CPT/HCPCS: 36415; 80053; 80061; 84153; 84443; 85025